=== PATIENT | female | born 1955 | race Caucasian/White ===

== ENCOUNTER 2017-08-08 13:09 | Day surgery (SDC) | END 2017-08-08 18:24 | disposition home or self-care (01) ==

== ENCOUNTER 2018-12-18 14:07 | Emergency (ER) | payer OTHER ==
[~2018-12-18] VITALS: Ht 157.5 cm; Wt 67.0 kg
[~2018-12-18 14:07] MED LIST: BENA40TA56 PO; CHOL400T10 PO; FISH OIL; LEVO50TA7 PO; LOVA20TA PO
[2018-12-18 14:10] VITALS: Ht 157.5 cm; Wt 67.0 kg
[2018-12-18] MEDS ORDERED: SILVER SULFADIAZINE 1% 25 GM CR TOP ONE (16:00)
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
== END 2018-12-18 16:29 | disposition home or self-care (01) ==
LOC: MERGE 14:07 → FTE 14:07
DX: T21.11XA Burn of first degree of chest wall, initial encounter (principal); I10 Essential (primary) hypertension; X11.8XXA Contact with other hot tap-water, initial encounter; Y92.9 Unspecified place or not applicable
CPT/HCPCS: Z7502; Z7610; 99282

== ENCOUNTER 2019-03-04 13:04 | Emergency (ER) | payer OTHER ==
[~2019-03-04] VITALS: Wt 63.6 kg
[~2019-03-04 13:04] MED LIST changes: +CEPH-443 PO; +NAPR-985 PO; +SULF1TAB31 PO
[2019-03-04 15:51] VITALS: BP 145/76; PULSE 78; RESP 20
== END 2019-03-04 15:52 | disposition home or self-care (01) ==
LOC: FTE 13:04
DX: M79.672 Pain in left foot (principal); E03.9 Hypothyroidism, unspecified; I10 Essential (primary) hypertension
CPT/HCPCS: 36415; 73630; 80053; 81001; 83690; 84560; 85025; Z7502